=== PATIENT | female | born 1980 | race Two or more races ===

== ENCOUNTER 2019-08-01 23:33 | Emergency (ER) | payer MEDICAID ==
[~2019-08-01] VITALS: Ht 160 cm; Wt 61.2 kg
--- NOTE | 2019-08-02 00:03 | NUR ---
ED Nurse Note: pt walked in c/o chest pain left side radiating to left arm, pt was in the ER prior to the incident pt's daughter in the er as a patient. pt reports nausea as well. pt AA&ox4, gcs=15, skin warm and dry, resp even and unlabored on RA, vss, NSR on night monitor, will cont monitor.
[2019-08-02 00:05] VITALS: BP 144/73
[2019-08-02 00:30] LABS: EOSINOPHILS % (AUTO) 0.5 % (0.0-3.0); HEMATOCRIT 27.2 % (37.0-47.0); HEMOGLOBIN 8.5 G/DL (12.0-16.0); LYMPHOCYTES % (AUTO) 26.2 % (20.0-45.0); MEAN CORPUSCULAR VOLUME 63 FL (80-99); MONOCYTES % (AUTO) 7.1 % (1.0-10.0); NEUTROPHILS % (AUTO) 65.3 % (45.0-75.0); PLATELET COUNT 353 K/UL (150-450); RED BLOOD COUNT 4.32 M/UL (4.20-5.40); RED CELL DISTRIBUTION WIDTH 16.1 % (11.6-14.8); WHITE BLOOD COUNT 9.6 K/UL (4.8-10.8)
[2019-08-02 00:32] LABS: APPEARANCE,URINE CLEAR; BILIRUBIN, URINE NEGATIVE (NEGATIVE); COLOR,URINE PALE YELLOW; GLUCOSE, URINE (UA) NEGATIVE (NEGATIVE); KETONES,URINE NEGATIVE (NEGATIVE); LEUKOCYTE ESTERASE ,URINE NEGATIVE (NEGATIVE); NITRITE,URINE NEGATIVE (NEGATIVE); PH,URINE 7 (4.5-8.0); PROTEIN,URINE NEGATIVE (NEGATIVE); UROBILINOGEN,URINE NORMAL MG/DL (0.0-1.0)
[2019-08-02 00:40] LABS: ANION GAP 8 mmol/L (5-15); BLOOD UREA NITROGEN 12 mg/dL (7-18); CALCIUM 8.9 MG/DL (8.5-10.1); CARBON DIOXIDE 25 MMOL/L (21-32); CHLORIDE 107 MMOL/L (98-107); CREATININE 0.7 MG/DL (0.55-1.30); POTASSIUM 3.4 MMOL/L (3.5-5.1); SODIUM 139 MMOL/L (136-145)
--- NOTE | 2019-08-02 01:02 | NUR ---
ED Nurse Note: PT BACK FROM CT AND RESTING, FAMILY AT THE BEDSIDE, WILL CONT MONITOR. VSS. 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
--- NOTE | 2019-08-02 01:32 | Diagnostic Imaging Report ---
EXAM: CT Head Without Intravenous Contrast CLINICAL HISTORY: PAIN TECHNIQUE: Axial computed tomography images of the head brain without intravenous contrast. CTDI is 71 mGy and DLP is 1420 mGy-cm. One or more of the following dose reduction techniques were used: automated exposure control, adjustment of the mA and or kV according to patient size, use of iterative reconstruction technique. COMPARISON: No relevant prior studies available. FINDINGS: Brain: Single 0.2 cm right parietal lobe parenchymal calcification could be incidental, or could represent a manifestation neurocysticercosis although an isolated calcification would be an uncommon manifestation of this process. Correlate clinically. If there is continued concern, recommend IV contrast enhanced MRI brain. No hemorrhage. No significant white matter disease. Ventricles: Unremarkable. No ventriculomegaly. Bones joints: Unremarkable. No acute fracture. Soft tissues: Unremarkable. Sinuses: Unremarkable as visualized. No acute sinusitis. Mastoid air cells: Unremarkable as visualized. No mastoid effusion. IMPRESSION: 1. No acute intracranial abnormality. 2. Single 0.2 cm right parietal lobe parenchymal calcification could be incidental, or could represent a manifestation neurocysticercosis although an isolated calcification would be an uncommon manifestation of this process. Correlate clinically. If there is continued concern, recommend IV contrast enhanced MRI brain. 3. Otherwise unremarkable study.
[2019-08-02] MEDS ORDERED: Ketorolac 30mg Inj IV ONE (01:45)
--- NOTE | 2019-08-02 01:50 | Emergency Room Report ---
History of Present Illness General Chief Complaint: Chest Pain Source: Patient Present Illness HPI 39-year-old female with no past medical history patient presents with chief complaint of headache and left arm pain chest pain. Onset for a week. Intermittently. Lasted about 5 minutes. Started with a headache on the left side. Throbbing in nature. No nausea no vomiting. No fever chills. Pain is 7 out of 10. Now with left arm pain. No problem with movement. Radiate to her upper chest area. No exertional component. No diaphoresis but no shortness of breath. Nothing made it better. Nothing made it worse. Allergies: Coded Allergies: No Known Allergies (Unverified , 08/01/19) Patient History Past Medical History: see triage record, old chart reviewed Past Surgical History: none Pertinent Family History: none Social History: Denies: smoking Now: No Immunizations: other Reviewed Nursing Documentation: PMH: Agreed; PSxH: Agreed Nursing Documentation-PMH Hx Hypertension: Yes Review of Systems Eye: Denies: eye pain, blurred vision ENT: Denies: ear pain, nose congestion, throat swelling Respiratory: Denies: cough, shortness of breath Cardiovascular: Reports: chest pain; Denies: palpitations Gastrointestinal: Denies: abdominal pain, diarrhea, nausea, vomiting Musculoskeletal: Denies: back pain, joint pain Skin: Denies: rash Neurological: Reports: headache; Denies: numbness Endocrine: Denies: increased thirst, increased urine Hematologic/Lymphatic: Denies: easy bruising All Other Systems: negative except mentioned in HPI Physical Exam Vital Signs Date Time Temp Pulse Resp B/P (MAP) Pulse Ox O2 Delivery O2 Flow Rate FiO2 08/01/19 23:40 97.5 78 16 152/86 (108) 96 Room Air Vitals with high blood pressure Sp02 EP Interpretation: reviewed, normal General Appearance: well appearing, no apparent distress, alert Head: normocephalic, atraumatic Eyes: bilateral eye PERRL, bilateral eye EOMI ENT: hearing grossly normal, normal pharynx Neck: full range of motion, supple, no meningismus Respiratory: chest non-tender, lungs clear, normal breath sounds Cardiovascular #1: regular rate, rhythm, no murmur Gastrointestinal: normal bowel sounds, non tender, no mass, no organomegaly, no bruit, non-distended Musculoskeletal: back normal, gait/station normal, normal range of motion Psychiatric: mood/affect normal Medical Decision Making Diagnostic Impression: Primary Impression: Chest pain Qualified Codes: R07.9 - Chest pain, unspecified Additional Impression: Headache Qualified Codes: G44.209 - Tension-type headache, unspecified, not intractable ER Course Headache and chest pain. No evidence of TIA or CVA. No evidence of ACS, PE, dissection name a few. Will discharge home. EKG Diagnostic Results Rate: normal Rhythm: NSR ST Segments: no acute changes Rhythm Strip Diag. Results EP Interpretation: yes Rate: 60 Rhythm: NSR, no PVC's, no ectopy CT/MRI/US Diagnostic Results CT/MRI/US Diagnostic Results : Imaging Test Ordered: CT head Impression Read by radiologist. 0.2 cm right parietal lobe calcification. Incidental versus neurocysticercosis Last Vital Signs Date Time Temp Pulse Resp B/P (MAP) Pulse Ox O2 Delivery O2 Flow Rate FiO2 08/02/19 00:05 62 16 Room Air 08/02/19 00:05 97.5 144/73 99 Status: improved Disposition: HOME, SELF-CARE Condition: Stable Scripts Ibuprofen* (MOTRIN*) 600 Mg Tablet 600 MG ORAL THREE TIMES A DAY, #30 TAB 0 Refills Prov: David Bishop MD 08/02/19 Referrals: NOT CHOSEN [facility]/,REFERRING (PCP) Patient Instructions: Nonspecific Chest Pain Additional Instructions: Follow-up with your doctor in 7 days. Return if symptoms worsen. David Bishop MD Aug 02, 2019 01:50
[2019-08-02] MEDS ORDERED: IBUPROFEN600 MG ORAL (01:52)
--- NOTE | 2019-08-02 01:56 | NUR ---
ED Nurse Note: pt cleared to be d/c per ERMD, pt discharge and aftercare instruction provided w/ prescription, pt education done via discussion and handout, pt verbalized understanding and agrees with plan, pt advised to follow up with pcp or return to ed if changes in condition, vss, ambulatory w/ steady gait, iv d/c and id band removed, pt accompanied by and sister in law, left w/ all belongings.
[2019-08-02 01:58] VITALS: BP 116/68
== END 2019-08-02 01:58 | disposition home or self-care (01) ==
LOC: EMR 23:49
DX: R07.9 Chest pain, unspecified (principal); G44.209 Tension-type headache, unspecified, not intractable; I10 Essential (primary) hypertension
CPT/HCPCS: 36415; 70450; 80048; 81001; 84484; 85025; 96374; J1885; Z7502; 99284